=== PATIENT | female | born 1980 | race Two or more races ===

== ENCOUNTER 2022-05-01 16:24 | Emergency (ER) | payer OTHER ==
[~2022-05-01] VITALS: Ht 162.6 cm; Wt 61.2 kg
--- NOTE | 2022-05-01 18:18 | NUR ---
NAUSEA AND VOMITING X 8 DAYS AND BODY ACHES. STATED SHE TESTED POSITIVE FOR COVID 10 DAYS AGO AND HAS NOT RETESTED TO SEE IF SHE IS NEGATIVE. STATED SHE HAS NO APPETITE AND UNABLE TO KEEP FOOD DOWN. UNABLE TO PROVIDE URINE AT THIS TIME. AWAITING MD ORDERS.
--- NOTE | 2022-05-01 18:22 | NUR ---
TO ER BED 11,NO APPARENT CHANGE IN CONDITION
[2022-05-01] MEDS ORDERED: ONDANSETRON HCL/PF 4 MG/2 ML VIAL ONE (18:38)
--- NOTE | 2022-05-01 18:47 | NUR ---
IV ESTABLISHED L AC 20G. LABS DRAWN AND COLLECTED AT BEDSIDE.
[2022-05-01] MEDS: ONDANSETRON HCL/PF 4 MG/2 ML VIAL IVP ONE (18:49)
[2022-05-01] MEDS: IV NS 0.9% 1,000 ML BAG IV ONE (18:49)
--- NOTE | 2022-05-01 18:52 | NUR ---
COVID TEST COLLECTED AND SENT
[2022-05-01 19:39] LABS: BASOPHILS % (AUTO) 0.5 % (0.0-2.0); EOSINOPHILS % (AUTO) 0.3 % (0.0-6.0); HEMATOCRIT 45 % (33-45); HEMOGLOBIN 15.8 g/dL (11.5-14.8); LYMPHOCYTES # (AUTO) 1.1 K/uL (0.8-4.8); LYMPHOCYTES % (AUTO) 15.9 % (20.0-44.0); MEAN CORPUSCULAR HGB CONC 35 g/dl (31.0-36.0); MEAN CORPUSCULAR VOLUME 94 fL (82-100); MONOCYTES # (AUTO) 0.4 K/uL (0.1-1.30); MONOCYTES % (AUTO) 5.7 % (2.0-12.0); NEUTROPHILS # (AUTO) 5.6 K/uL (1.8-8.9); NEUTROPHILS % (AUTO) 77.6 % (43.0-81.0); PLATELET COUNT (AUTO) 255 K/uL (150-450); RED BLOOD CELL COUNT(AUTO) 4.85 MIL/uL (4.0-5.2); WHITE BLOOD COUNT (AUTO) 7.2 K/uL (4.3-11.0)
--- NOTE | 2022-05-01 19:40 | NUR ---
SEEN PATIENT AAOX4. COMPLAINING OF NAUSEA AND BODY ACHE. SHE WAS SEEN EARLIER BY DR HURTADO. WAITING FOR LAB WORKS. PATIENT CLAIMED SHE WAS POSITIVE OF COVID 10 DAYS AGO. VITALS CHECKED.
[2022-05-01 20:05] LABS: CALCIUM, SERUM 9.1 mg/dL (8.5-10.1); CREATININE 0.9 mg/dL (0.6-1.3); POTASSIUM 3.9 mmol/L (3.5-5.1)
[2022-05-01 20:12] LABS: ALBUMIN 4.4 g/dL (3.4-5.0); BILIRUBIN,DIRECT 0.1 mg/dL (0.0-0.2); BILIRUBIN,TOTAL 0.4 mg/dL (0.2-1.0); TOTAL PROTEIN, SERUM 7.7 g/dL (6.4-8.2)
[2022-05-01] MEDS ORDERED: ONDA4TAB5 PO (20:25)
--- NOTE | 2022-05-01 20:30 | NUR ---
PATIENT FOR DISCHARGE BY DR HURTADO WITH DISCHARGE INSTRUCTIONS BUT REFUSED TO GO. SHE ALL OF THE SUDDEN PROVIDE URINE SAMPLE THAT WAS REQUESTED FROM HER UPON ARRIVAL WHICH SHE CONSTANTLY REFUSED TO PROVIDE. TOLD THE PATIENT THAT I WILL SUBMIT THE URINE AND WE WILL WAIT FOR THE RESULT AND IF DOCTOR SAYS SHE IS DISCHARGE, THEN SHE NEEDS TO GO.
[2022-05-01 21:25] LABS: BILIRUBIN,URINE SMALL (NEGATIVE); COLOR,URINE YELLOW (YELLOW); LEUKOCYTE ESTERASE ,URINE SMALL (NEGATIVE); NITRITE, URINE NEGATIVE (NEGATIVE); PROTEIN,URINE NEGATIVE (NEGATIVE); UGLUCOSE NEGATIVE (NEGATIVE); UROBILINOGEN,URINE 0.2 EU/dL (0.2)
[2022-05-01 21:43] LABS: BACTERIA,URINE Moderate /HPF (None Seen); RBC,URINE 0-2 /HPF (0-2)
[2022-05-01 21:44] LABS: MUCUS,URINE Many /LPF (None Seen); SQUAMOUS EPITHELIAL CELL,UR Many /HPF (None Seen)
--- NOTE | 2022-05-01 23:10 | NUR ---
PATIENT FOR DISCHARGE BUT STILL REFUSED TO GO. SHE WAS PROVIDED WITH DISCHARGE INSTRUCTIONS AND WAS EXPLAINED TO HER THAT DOCTOR CLEARED HER. WITH REGARDS TO HER URINE, THERE IS AN INCREASE IN WBC BUT PER MD, IT WAS DUE TO THE FACT THAT IT WAS CONTAMINATED. EVERYTHING WAS EXPLAINED TO HER BY CO-NURSE BUT SHE IS TELLING EVERYBODY THAT WE ARE ALL LIARS. WE DONT KNOW WHAT WE ARE DOING.
--- NOTE | 2022-05-01 23:33 | NUR ---
Patient discharged to home in stable condition. Written and verbal after care instructions given. Patient verbalizes understanding of instruction.IV removed. Catheter intact and site benign. Pressure and 4x4 applied to site. No bleeding noted.
[2022-05-02 02:12] VITALS: BP 122/81
== END 2022-05-01 23:35 | disposition home or self-care (01) ==
LOC: ER 16:26
DX: U07.1 COVID-19 (principal); R11.2 Nausea with vomiting, unspecified; R19.7 Diarrhea, unspecified; Z87.440 Personal history of urinary (tract) infections; I10 Essential (primary) hypertension
CPT/HCPCS: 99284; 96374; 71045; 96361; 87426; 85025; 80048; 87086; 80076; 81001; 36415; J2405; J7030; C9803